=== PATIENT | male | born 1960 ===

== ENCOUNTER 2017-06-16 12:49 | Emergency (ER) | payer MEDICAID ==
[2017-06-16 13:32] VITALS: BP 149/84; PULSE 66; RESP 16; TEMP 97; O2SAT 99
--- NOTE | 2017-06-16 13:56 | RAD ---
PROCEDURE: Bilateral Knee Radiographs. HISTORY: knee pain COMPARISON: None. FINDINGS: BONES: Bone alignment and mineralization are normal. There is no acute fracture or bone destruction. JOINTS: There is mild tricompartmental degenerative osteoarthrosis with mild reduced joint spaces and marginal spurring, worse in the medial compartment. SOFT TISSUES: The periarticular soft tissues are normal. JOINT EFFUSION: There are small suprapatellar joint effusions. OTHER FINDINGS: None. IMPRESSION: Mild tricompartmental degenerative osteoarthrosis, worse in the medial compartments. Small suprapatellar joint effusions.
--- NOTE | 2017-06-16 13:58 | ED PDOC ---
Lower Extremity Pain/Injury Time Seen by Provider: 06/16/17 13:05 Chief Complaint (Nursing): Lower Extremity Problem/Injury Chief Complaint (Provider): Bilateral Knee Pain History Per: Patient History/Exam Limitations: no limitations Current Symptoms Are (Timing): Still Present Additional Complaint(s): Bartolo Emmanuel, a 56 year old male, presents to the ED complaining of bilateral knee pain x1 month. The patient states that he got tired of feeling the pain and decided to come into the ED to get evaluated. He states that he has been takin 250mg Ibuprofen which has offered some relief. Past Medical History Reviewed: Historical Data, Nursing Documentation, Vital Signs Vital Signs: Last Vital Signs Temp 97.0 F L 06/16/17 12:52 Pulse 66 06/16/17 12:52 Resp 16 06/16/17 12:52 BP 149/84 06/16/17 12:52 Pulse Ox 99 06/16/17 12:52 - Medical History PMH: No Chronic Diseases - Surgical History Surgical History: No Surg Hx - Family History Family History: States: Unknown Family Hx - Home Medications Home Medications: Ambulatory Orders Medication Instructions Recorded traMADol [Ultram] 50 mg PO Q6H PRN #15 tab 06/16/17 - Allergies Allergies/Adverse Reactions: Allergies Allergy/AdvReac Type Severity Reaction Status Date / Time No Known Allergies Allergy Verified 06/16/17 12:54 Review of Systems Musculoskeletal: Positive for: Other (b/l knee pain) Physical Exam - Reviewed Nursing Documentation Reviewed: Yes Vital Signs Reviewed: Yes - Physical Exam Appears: Positive for: Non-toxic, No Acute Distress Head Exam: Positive for: ATRAUMATIC, NORMAL INSPECTION, NORMOCEPHALIC Skin: Positive for: Normal Color, Warm, Dry Eye Exam: Positive for: Normal appearance, EOMI, PERRL Extremity: Positive for: Normal ROM (Full ROM of knee). Negative for: Tenderness, Deformity, Swelling Neurologic/Psych: Positive for: Alert, Oriented, Gait - ECG O2 Sat by Pulse Oximetry: 99 (RA) Pulse Ox Interpretation: Normal Medical Decision Making Medical Decision Makin Initial Impression: 56 year old male presenting with b/l knee pain Initial Plan: * RAD Knee * Ultram 50mg PO * Reevaluation 1354 Knee 3 Views B/L Dictated by: Celia J. Matias, MD Findings: Bones: Bone alignment and mineralization are normal. There is no acute fracture or bone destruction. Joints: There is mild tricompartmental degenrative osteoarthosis with mild reduced join spaces an dmarginal spurring, worse in medial compartment. Soft Tissues: The periarticular tissues are normal. Joint Effusion: There are small suprapatellar joint effusions. Impression: * Mild tricompartmental degenrative osteoarthosis, worse in the medial compartments. Small suprapatellar joint effusions. Scribe Attestation Documented by Germania Beck acting as a scribe for Hilda Nowak PA-C. Scribe Attestation All medical record entries made by the Scribe were at my direction and personally dictated by me. I have reviewed the chart and agree that the record accurately reflects my personal performance of the history, physical exam, medical decision making, and the department course for this patient. I have also personally directed, reviewed, and agree with the discharge instructions and disposition. Disposition - Clinical Impression Clinical Impression: Osteoarthritis - Patient ED Disposition Is Patient to be Admitted: No Counseled Patient/Family Regarding: Diagnosis, Need For Followup, Rx Given - Disposition Referrals: Enoch Ornelas III, MD [Staff Provider] - Disposition: Routine/Home Disposition Time: 14:35 Condition: GOOD Prescriptions: traMADol [Ultram] 50 mg PO Q6H PRN #15 tab PRN Reason: Pain Instructions: Osteoarthritis (ED)
== END 2017-06-16 15:12 | disposition home or self-care (01) ==
LOC: H.ER 12:49
DX: M17.0 Bilateral primary osteoarthritis of knee (principal)

== ENCOUNTER 2018-01-16 12:46 | Emergency (ER) | payer MEDICAID ==
[2018-01-16 13:17] VITALS: O2SAT 99
[2018-01-16 14:41] LABS: BASO # 0.1 K/uL (0.0-0.2); BASO % 0.9 % (0.0-2.0); EOS # 0.1 K/uL (0.0-0.7); EOS % 1.8 % (0.0-4.0); HEMOGLOBIN 15.9 g/dL (12.0-18.0); LYMPH % 36.1 % (20.0-40.0); MEAN CELL VOLUME 84.3 fl (80.0-94.0); MEAN CORPUSCULAR HEMOGLOBIN 28.9 pg (27.0-31.0); MEAN CORPUSCULAR HGB CONC 34.3 g/dL (33.0-37.0); MEAN PLATELET VOLUME 8.3 fl (7.2-11.7); MONO # 0.7 K/uL (0.0-0.8); MONO % 11.9 % (0.0-10.0); NEUT # 2.8 K/uL (1.8-7.0); NEUT % 49.3 % (50.0-75.0); NRBC % 0.8 % (0.0-0.0); RBC 5.51 Mil/uL (4.40-5.90); RED CELL DISTRIBUTION WIDTH 13.9 % (11.5-14.5); WHITE BLOOD COUNT 5.7 K/uL (4.8-10.8)
[2018-01-16 14:49] LABS: ALB/GLOB RATIO 1.2 (1.0-2.1); ALBUMIN 4.7 g/dL (3.5-5.0); ALT/SGPT 65 U/L (21-72); AST/SGOT 38 U/L (17-59); BLOOD UREA NITROGEN 20 mg/dl (9-20); CALCIUM 9.9 mg/dL (8.4-10.2); GFR AFRICAN-AMERICAN > 60; GFR NON-AFRICAN AMERICAN > 60
--- NOTE | 2018-01-16 14:52 | ED PDOC ---
HPI: General Adult Time Seen by Provider: 01/16/18 13:00 Chief Complaint (Nursing): Headache Chief Complaint (Provider): High blood pressure History Per: Patient History/Exam Limitations: no limitations Onset/Duration Of Symptoms: Hrs (today) Current Symptoms Are (Timing): Still Present Additional Complaint(s): Joseph Emmanuel is a 57 year old male, with a past medical history of hypertension , who was sent to the emergency department from clinic for high blood pressure onset today. Patient reports he went to clinic and had a blood pressure of 170/ 100. He also reports tightness around the neck and slight shortness of breath. He denies any fever, chills or chest pain. No further medical complaints. PMD: None provided. Past Medical History Reviewed: Historical Data, Nursing Documentation, Vital Signs Vital Signs: Last Vital Signs Temp 98.5 F 01/16/18 16:50 Pulse 64 01/16/18 16:50 Resp 15 01/16/18 16:50 BP 132/82 01/16/18 16:50 Pulse Ox 99 01/16/18 16:50 - Medical History PMH: HTN - Surgical History Surgical History: No Surg Hx - Family History Family History: States: CAD (mother) - Social History Current smoker - smoking cessation education provided: No Alcohol: None Drugs: Denies - Home Medications Home Medications: Ambulatory Orders Medication Instructions Recorded traMADol [Ultram] 50 mg PO Q6H PRN #15 tab 06/16/17 - Allergies Allergies/Adverse Reactions: Allergies Allergy/AdvReac Type Severity Reaction Status Date / Time No Known Allergies Allergy Verified 06/16/17 12:54 Review of Systems ROS Statement: Except As Marked, All Systems Reviewed And Found Negative Constitutional: Positive for: Other (high blood pressure). Negative for: Fever , Chills ENT: Positive for: Other (neck tightness) Cardiovascular: Negative for: Chest Pain Respiratory: Positive for: Shortness of Breath (slight) Physical Exam - Reviewed Nursing Documentation Reviewed: Yes Vital Signs Reviewed: Yes - Physical Exam Appears: Positive for: Well, Non-toxic, No Acute Distress Head Exam: Positive for: ATRAUMATIC, NORMAL INSPECTION, NORMOCEPHALIC Skin: Positive for: Normal Color, Warm, Dry Eye Exam: Positive for: Normal appearance Neck: Positive for: Painless ROM, Supple Cardiovascular/Chest: Positive for: Regular Rate, Rhythm. Negative for: Murmur Respiratory: Positive for: Normal Breath Sounds. Negative for: Respiratory Distress Gastrointestinal/Abdominal: Positive for: Normal Exam, Soft. Negative for: Tenderness Back: Positive for: Normal Inspection. Negative for: L CVA Tenderness, R CVA Tenderness, Vertebral Tenderness Extremity: Positive for: Normal ROM. Negative for: Tenderness, Deformity, Swelling Neurologic/Psych: Positive for: Alert, Oriented. Negative for: Motor/Sensory Deficits - Laboratory Results Result Diagrams: 01/16/18 14:30 01/16/18 14:30 - ECG ECG Rhythm: Positive for: Sinus Rhythm (Normal Sinus Rhythm at 67bpm) O2 Sat by Pulse Oximetry: 99 (RA) Pulse Ox Interpretation: Normal Medical Decision Making Medical Decision Making: Initial Impression: Hypertension Initial Plan: --EKG --CMP --Troponin I --CBC w/ differential --Reevaluation pt reevaluated, feels completely better ekg nsr troponin negative pts bp came down pt given appt for this tuesday at 2 pm in the clinic Scribe Attestation: Documented by Olegario Greenwood, acting as a scribe for Jean Pierre Manrique MD Provider Scribe Attestation: All medical record entries made by the Scribe were at my direction and personally dictated by me. I have reviewed the chart and agree that the record accurately reflects my personal performance of the history, physical exam, medical decision making, and the department course for this patient. I have also personally directed, reviewed, and agree with the discharge instructions and disposition. Disposition - Clinical Impression Clinical Impression: HTN (hypertension) - Patient ED Disposition Is Patient to be Admitted: No Counseled Patient/Family Regarding: Studies Performed, Diagnosis, Need For Followup - Disposition Disposition: Routine/Home Disposition Time: 15:00 Condition: IMPROVED Additional Instructions: follow up with your primary doctor in 1-2 days return to the ED with any worsening or concerning symptoms Instructions: High Blood Pressure (DC) Forms: [employer] (Kosovan)
[2018-01-16 16:51] VITALS: BP 132/82; PULSE 64; RESP 15; TEMP 98.5
--- NOTE | 2018-01-17 21:28 | CARD ---
APPROVED REPORT EKG Measurement Heart [id number] <Conclusion> Normal sinus rhythm Normal ECG
== END 2018-01-16 17:26 | disposition home or self-care (01) ==
LOC: H.ER 12:46
DX: I10 Essential (primary) hypertension (principal)

== ENCOUNTER 2019-01-14 12:31 | Emergency (ER) | payer OTHER ==
[2019-01-14 12:43] VITALS: TEMP 97.9
--- NOTE | 2019-01-14 12:59 | ED PDOC ---
Lower Extremity Pain/Injury Time Seen by Provider: 01/14/19 12:44 Chief Complaint (Nursing): Lower Extremity Problem/Injury Chief Complaint (Provider): Right Foot Pain History Per: Patient History/Exam Limitations: no limitations Onset/Duration Of Symptoms: Days (x1 week) Current Symptoms Are (Timing): Still Present Additional Complaint(s): Patient is a 58 year old male who presents for evaluation of right foot and big toe pain worsening for the past week. Patient reports localized pain and swelling to the area. Patient has been taking Motrin at home with mild relief, last dose last night. Patient reports a history of gout with similar symptoms. Patient denies any falls or trauma. Patient also denies fever/chills. No other complaints. Of note, patient has not taken his BP medication (lisinopril 40mg QD) in a week because he ran out and had a BP reading of 170/94 upon arrival in ED. Patient denies any complaints related to his elevated BP. Patient requesti ng refill of Lisinopril at this time. PMD: clinic Past Medical History Reviewed: Historical Data, Nursing Documentation, Vital Signs Vital Signs: Last Vital Signs Temp 97.9 F 01/14/19 12:40 Pulse 79 01/14/19 12:40 Resp 16 01/14/19 12:40 BP 170/94 H 01/14/19 12:40 Pulse Ox 98 01/14/19 12:40 - Medical History PMH: HTN Other PMH: Gout - Surgical History Surgical History: No Surg Hx - Family History Family History: States: CAD (mother) - Social History Current smoker - smoking cessation education provided: No Alcohol: None - Home Medications Home Medications: Ambulatory Orders Medication Instructions Recorded traMADol [Ultram] 50 mg PO Q6H PRN #15 tab 06/16/17 Colchicine 0.6 mg PO BID #10 tablet 01/14/19 Indomethacin 50 mg PO Q8 #21 capsule 01/14/19 Lisinopril [Zestril] 40 mg PO DAILY #30 tab 01/14/19 Methylprednisolone [Medrol Dose 4 mg PO DAILY #21 mg 01/14/19 Pack (21 tabs)] - Allergies Allergies/Adverse Reactions: Allergies Allergy/AdvReac Type Severity Reaction Status Date / Time No Known Allergies Allergy Verified 01/14/19 12:40 Review of Systems ROS Statement: Except As Marked, All Systems Reviewed And Found Negative Musculoskeletal: Positive for: Foot Pain (right) Physical Exam - Reviewed Nursing Documentation Reviewed: Yes Vital Signs Reviewed: Yes - Physical Exam Comments: GENERALIZED APPEARANCE: Patient is AAOx 3; in mild painful distress. Limping in ED. VITAL SIGNS: Per nurse's note, reviewed by me. SKIN: Warm, dry; (-) cyanosis. LOWER EXTREMITY: Moderate swelling and erythema with marked tenderness of the firstMTP joint; (-) break in skin, (-) discharge. Decreased ROM secondary to pain. Sensation and cap refill intact. Remainder of foot, ankle, and leg nontender with FROM. (-) calf tenderness LYMPHATIC: (-) lymphangitis. NECK: Supple, FROM CHEST AND RESPIRATORY: (-) rales, (-) rhonchi, (-) wheezes; breath sounds equalbilaterally. Respirations even and nonlabored. HEART AND CARDIOVASCULAR: (-) irregularity - ECG O2 Sat by Pulse Oximetry: 98 (RA) Pulse Ox Interpretation: Normal Medical Decision Making Medical Decision Makin Initial Impression: acute foot/toe pain, gout flare; medication refill Plan: -Colchicine PO -Prednisone PO -Toradol IM -Re-evaluation 1345 repeat BP: 127/97 On re-evaluation, patient reports improvement of symptoms. On exam, patient remains AAOx3, in no acute distress. Lungs clear to auscultation, cardiac RRR, repeat neuro exam shows no focal findings. Vitals stable. Educated on diet choices for both gout and HTN. Lab/Diagnostic results d/w the patient in great detail. Diagnosis of acute foot/toe pain, gout flare; medication refill d/w the patient. Based on history, exam and diagnostic results, plan will be for outpatient follow up with PMD/clinic. Patient instructed to follow-up with pmd / referral provided / the clinic in 1- 2 days without fail. Advised to take medication as prescribed. Return to the emergency room at any time for any new or worsening symptoms. Patient states he fully agrees with and understands discharge instructions. States that he agrees with the plan and disposition. Verbalized and repeated discharge instructions and plan. I have given the patient opportunity to ask any additional questions. Disposition - Clinical Impression Clinical Impression: Gout, Foot pain, Elevated blood pressure reading, Medication refill - Patient ED Disposition Is Patient to be Admitted: No Counseled Patient/Family Regarding: Studies Performed, Diagnosis, Need For Followup, Rx Given - Disposition Referrals: [facility] [Outside] Podiat[facility] [Outside] Disposition: Routine/Home Disposition Time: 13:45 Condition: STABLE Additional Instructions: The emergency medical care you received today was directed at your acute symptoms. If you were prescribed any medication, please fill it and take as directed. It may take several days for your symptoms to resolve. Return to the Emergency Department if your symptoms worsen, do not improve, or if you have any other problems. Please contact your doctor in 2 days for re-evaluation and follow up / or call one of the physicians/clinics you have been referred to that are listed on the Patient Visit Information form that is included in your discharge packet. Bring any paperwork you were given at discharge with you along with any medications you are taking to your follow up visit. Our treatment cannot replace ongoing medical care by a primary care provider (PCP) outside of the emergency department. Prescriptions: Colchicine 0.6 mg PO BID #10 tablet Indomethacin 50 mg PO Q8 #21 capsule Lisinopril [Zestril] 40 mg PO DAILY #30 tab Methylprednisolone [Medrol Dose Pack (21 tabs)] 4 mg PO DAILY #21 mg Instructions: Gout, High Blood Pressure in Adults, Lifestyle Changes to Manage Gout, Muscle and Bone Pain (DC), Medicines for High Blood Pressure, Metatarsalgia (DC) Forms: [employer] (Georgian) Print Language: TAMAZIGHT - POA Present On Arrival: None
[2019-01-14 13:44] VITALS: BP 127/97; PULSE 78; RESP 19
[2019-01-14 13:47] VITALS: O2SAT 98
== END 2019-01-14 14:08 | disposition home or self-care (01) ==
LOC: H.ER 12:31
DX: M10.9 Gout, unspecified (principal); I10 Essential (primary) hypertension
CPT/HCPCS: 96372; 99283; J1885